=== PATIENT | male | born 2000 | race African-American/Black ===

== ENCOUNTER 2022-12-29 06:01 | Emergency (ER) | payer OTHER, SELFPAY ==
[2022-12-29 06:46] LABS: Absolute Lymphocytes (CBC) 1.5 K/uL (0.7-4.9); Hematocrit 45.2 % (39.6-49.0); Lymphocytes % 14.2 % (15.3-44.8); MCV 85.1 fL (80-100); MPV 8.6 fL (7.6-11.3); RBC Red Blood Cell Count 5.31 M/uL (4.33-5.43)
[2022-12-29 07:04] LABS: Albumin 3.9 g/dL (3.4-5.0); Bilirubin Total 0.7 mg/dL (0.2-1.0); Potassium 3.7 mEq/L (3.5-5.1); Protein, Total 7.6 g/dL (6.4-8.2)
--- NOTE | 2022-12-29 07:33 | RAD REPORT ---
EXAM DESCRIPTION: US - Scrotum Testicles - 12/29/2022 7:08 am CLINICAL HISTORY: left testicular nodule COMPARISON: No comparisons FINDINGS: The right testicle measures 4.9 x 2.3 x 3.2 cm with volume of 18.9 cc. No intratesticular masses or evidence of testicular torsion. The left testicle measures 4.1 x 2.7 x 3.5 cm with volume of 20.7 cc. No intratesticular masses or ev idence of testicular torsion. Enlarged hypervascular left epididymis. No pathologic fluid collections. Left-sided varicocele . IMPRESSION: Left-sided epididymitis. No abscess. Left varicocele. Bilateral testicular blood flow is present.
--- NOTE | 2022-12-29 07:43 | EDPHYS ---
Physician Documentation [facility] Name: Dakotah Mcdonald Age: 22 yrs Sex: Male : 2000 Arrival Date: 12/29/2022 Time: 06:01 Bed 16 Private MD: ED Physician Glenn Farrell HPI: 12/29 06:13 This 22 yrs old Black Male presents to ER via Unassigned with complaints of Groin Pain. sp4 07:28 Patient presents complaining of discomfort in the left testicle and associated palpable sp4 nodule of the left testicle. Nodule is not on the underside of the testicle. Patient noticed that 2 days ago.. Denied any other symptoms. Historical: - Allergies: 06:25 seafood; pf1 - PMHx: 06:25 Asthma; pf1 - PSHx: 06:25 None; pf1 - Immunization history:: Adult Immunizations up to date, Last tetanus immunization: < 5 years ago Flu vaccine is not up to date. - Social history:: Smoking status: Patient denies any tobacco usage or history of. Patient/guardian denies using alcohol, street drugs. - Family history:: not pertinent. ROS: 07:28 Constitutional: Negative for fever, chills, and weight loss, Eyes: Negative for injury, sp4 pain, redness, and discharge, ENT: Negative for injury, pain, and discharge, Neck: Negative for injury, pain, and swelling, Cardiovascular: Negative for chest pain, palpitations, and edema, Respiratory: Negative for shortness of breath, cough, wheezing, and pleuritic chest pain, Abdomen/GI: Negative for abdominal pain, nausea, vomiting, diarrhea, and constipation, Back: Negative for injury and pain, : Negative for injury, bleeding, discharge, and swelling, positive with testicle discomfort left testicular nodule MS/Extremity: Negative for injury and deformity, Skin: Negative for injury, rash, and discoloration, Neuro: Negative for headache, weakness, numbness, tingling, and seizure, Psych: Negative for depression, anxiety, Allergy/Immunology: Negative for hives, rash, and allergies Endocrine: Negative for neck swelling, polydipsia, polyuria, polyphagia, and weight changes Hematologic/Lymphatic: Negative for swollen nodes, abnormal bleeding, and unusual bruising Exam: 07:28 Constitutional: This is a well developed, well nourished patient who is awake, alert, sp4 and in no acute distress. Head/Face: Normocephalic, atraumatic. Eyes: Pupils equal round and reactive to light, extra-ocular motions intact. Lids and lashes normal. Conjunctiva and sclera are not injected. Cornea within normal limits. Periorbital areas with no swelling, redness, or edema. ENT: Nares patent. No nasal discharge, no septal abnormalities noted. Tympanic membranes are normal and external auditory canals are clear. Oropharynx with no redness, swelling, or masses, exudates, or evidence of obstruction, uvula midline. Mucous membranes moist. Neck: Trachea midline, no thyromegaly or masses palpated, and no cervical lymphadenopathy. Supple, full range of motion without nuchal rigidity, or vertebral point tenderness. No Meningismus. Chest/axilla: Normal chest wall appearance and motion. Nontender with no deformity. No lesions are appreciated. Cardiovascular: Regular rate and rhythm with a normal S1 and S2. No gallops, murmurs, or rubs. Normal PMI, no JVD. No pulse deficits. Respiratory: Lungs have equal breath sounds bilaterally, clear to auscultation and percussion. No rales, rhonchi or wheezes noted. No increased work of breathing, no retractions or nasal flaring. Abdomen/GI: Soft, non-tender, with normal bowel sounds. No distension or tympany. No guarding or rebound. No evidence of tenderness throughout. Back: No spinal tenderness. No costovertebral tenderness. Male : Normal genitalia with no discharge or lesions. There is small palpable left testicular nodule that is soft to touch inferior part of the left testicle. Otherwise no mass, no cellulitis, no abscess, no signs of orchitis or epididymitis. Skin: Warm, dry with normal turgor. Normal color with no rashes, no lesions, and no evidence of cellulitis. MS/ Extremity: Pulses equal, no cyanosis. Neurovascular intact. Full, normal range of motion. Neuro: Awake and alert, GCS 15, oriented to person, place, time, and situation. Cranial nerves II-XII grossly intact. Motor strength 5/5 in all extremities. Sensory grossly intact. Psych: Awake, alert, with orientation to person, place and time. Behavior, mood, and affect are within normal limits Vital Signs: 06:24 BP 149 / 88; Pulse 107; Resp 18; Temp 99.5; Pulse Ox 100% on R/A; Weight 78.02 kg; pf1 Height 5 ft. 11 in. ; Pain 6/10; 06:24 Body Mass Index 23.99 (78.02 kg, 180.34 cm) pf1 06:24 Pain Scale: Adult pf1 MDM: 06:18 Patient medically screened. sp4 07:28 Differential Diagnosis Testicular mass, testicular nodule, acute orchitis, epididymal sp4 cyst. Data reviewed: vital signs, nurses notes, radiologic studies, ultrasound. ED course: Labs unremarkable today.. . 07:41 ED course: Ultrasound revealed acute left epididymitis. Patient will be treated with sp4 doxycycline Flagyl for the next 10 days. We will also prescribe ibuprofen as needed for pain.. 12/29 06:18 Order name: CBC with Diff; Complete Time: 07:27 sp4 12/29 06:18 Order name: CMP; Complete Time: 07:27 sp4 12/29 06:18 Order name: Urinalysis w/ reflexes sp4 12/29 07:51 Order name: Urine Culture EDMS 12/29 06:18 Order name: US Scrotum Testicles; Complete Time: 07:35 sp4 12/29 06:18 Order name: IV Saline Lock; Complete Time: 06:47 sp4 12/29 06:18 Order name: Labs collected and sent; Complete Time: 06:47 sp4 Administered Medications: 08:01 Drug: AZITHromycin PO 500 mg Route: PO; kc6 08:05 Follow up: Response: No adverse reaction kc6 08:01 Drug: Doxycycline PO 100 mg Route: PO; kc6 08:05 Follow up: Response: No adverse reaction kc6 08:01 Drug: metroNIDAZOLE PO 500 mg Route: PO; kc6 08:05 Follow up: Response: No adverse reaction kc6 Disposition Summary: 12/29/22 07:42 Discharge Ordered Location: Home sp4 Problem: new sp4 Symptoms: have improved sp4 Condition: Stable sp4 Diagnosis - Acute left epididymitis sp4 Followup: sp4 - With: Pk Shetty MD - When: 7 - 10 days - Reason: Recheck today's complaints Discharge Instructions: - Discharge Summary Sheet sp4 - Epididymitis sp4 Forms: - Antibiotic Education sp4 Prescriptions: - Flagyl 500 mg Oral Tablet - take 1 tablet by ORAL route every 8 hours for 10 days; 30 tablet; Refills: 0, sp4 Product Selection Permitted - Ibuprofen 600 mg Oral Tablet - take 1 tablet by ORAL route every 6 hours As needed take with food; 30 tablet; sp4 Refills: 0, Product Selection Permitted - Doxycycline Monohydrate 100 mg Oral Tablet - take 1 tablet by ORAL route every 12 hours for 10 days; 20 tablet; Refills: 0, sp4 Product Selection Permitted Signatures: Dispatcher [employer] Bree Campbell RN RN kc6 Selina Courtney RN RN pf1 Glenn Farrell MD MD sp4
--- NOTE | 2022-12-29 07:43 | ER ---
Nurse's Notes [facility] Name: Dakotah Mcdonald Age: 22 yrs Sex: Male : 2000 Arrival Date: 12/29/2022 Time: 06:01 Bed 16 Private MD: Diagnosis: Acute left epididymitis Presentation: 12/29 06:24 Chief complaint: Patient states: left groin to left testicular pain 6,onset 2 days with pf1 a lump to left testicle. Coronavirus screen: Vaccine status: Patient reports being unvaccinated. Client denies travel out of the [place] in the last 14 days. At this time, the client does not indicate any symptoms associated with coronavirus-19. Ebola Screen: Patient negative for fever greater than or equal to 101.5 degrees Fahrenheit, and additional compatible Ebola Virus Disease symptoms. Initial Sepsis Screen: Does the patient meet any 2 criteria? HR > 90 bpm. No. Patient's initial sepsis screen is negative. Does the patient have a suspected source of infection? No. Patient's initial sepsis screen is negative. Risk Assessment: Do you want to hurt yourself or someone else? Patient reports no desire to harm self or others. 06:24 Method Of Arrival: Ambulatory pf1 06:24 Acuity: JAY 3 pf1 Historical: - Allergies: 06:25 seafood; pf1 - PMHx: 06:25 Asthma; pf1 - PSHx: 06:25 None; pf1 - Immunization history:: Adult Immunizations up to date, Last tetanus immunization: < 5 years ago Flu vaccine is not up to date. - Social history:: Smoking status: Patient denies any tobacco usage or history of. Patient/guardian denies using alcohol, street drugs. - Family history:: not pertinent. Screenin:48 [facility] ED Fall Risk Assessment (Adult) History of falling in the last 3 months, jb4 including since admission No falls in past 3 months (0 pts) Confusion or Disorientation No (0 pts) Score/Fall Risk Level 0 - 2 = Low Risk Oriented to surroundings, Maintained a safe environment. Abuse screen: Denies threats or abuse. Nutritional screening: No deficits noted. Tuberculosis screening: No symptoms or risk factors identified. Assessment: 06:30 General: Appears in no apparent distress. uncomfortable, Behavior is calm, cooperative, jb4 appropriate for age. Pain: Complains of pain in left testicle Pain does not radiate. Pain currently is 6 out of 10 on a pain scale. Neuro: Level of Consciousness is awake, alert, obeys commands, Oriented to person, place, time, situation. Cardiovascular: Patient's skin is warm and dry. Respiratory: Airway is patent Respiratory effort is even, unlabored, Respiratory pattern is regular, symmetrical. GI: No signs and/or symptoms were reported involving the gastrointestinal system. : No signs and/or symptoms were reported regarding the genitourinary system. EENT: No signs and/or symptoms were reported regarding the EENT system. Derm: Skin is intact, Skin is pink, warm \T\ dry. Musculoskeletal: Circulation, motion, and sensation intact. Range of motion: intact in all extremities. 07:00 Reassessment: Patient appears in no apparent distress at this time. Patient and/or kc6 family updated on plan of care and expected duration. Pain level reassessed. Patient is alert, oriented x 3, equal unlabored respirations, skin warm/dry/pink. Vital Signs: 06:24 BP 149 / 88; Pulse 107; Resp 18; Temp 99.5; Pulse Ox 100% on R/A; Weight 78.02 kg; pf1 Height 5 ft. 11 in. ; Pain 6/10; 06:24 Body Mass Index 23.99 (78.02 kg, 180.34 cm) pf1 06:24 Pain Scale: Adult pf1 ED Course: 06:03 Patient arrived in ED. jj6 06:12 Glenn Farrell MD is Attending Physician. sp4 06:25 Triage completed. pf1 06:30 Initial lab(s) drawn, by hi, sent to lab. Inserted saline lock: 18 gauge in left jb4 antecubital area, using aseptic technique. Blood collected. 06:48 Patient has correct armband on for positive identification. Bed in low position. Call jb4 light in reach. Side rails up X 1. Client placed on continuous cardiac and pulse oximetry monitoring. NIBP monitoring applied. 07:10 Scrotum Testicles In Process Unspecified. EDMS 07:15 Report received from KERLINE Peoples. kc6 07:39 Urinalysis w/ reflexes Sent. bc6 07:42 Pk Shetty MD is Referral Physician. sp4 08:01 No provider procedures requiring assistance completed. IV discontinued, intact, kc6 bleeding controlled, No redness/swelling at site. Pressure dressing applied. Administered Medications: 08:01 Drug: AZITHromycin PO 500 mg Route: PO; kc6 08:05 Follow up: Response: No adverse reaction kc6 08:01 Drug: Doxycycline PO 100 mg Route: PO; kc6 08:05 Follow up: Response: No adverse reaction kc6 08:01 Drug: metroNIDAZOLE PO 500 mg Route: PO; kc6 08:05 Follow up: Response: No adverse reaction kc6 Medication: 08:02 VIS not applicable for this client. kc6 Outcome: 07:42 Discharge ordered by . sp4 08:01 Discharged to home ambulatory. kc6 08:01 Condition: stable 08:01 Discharge instructions given to patient, Instructed on discharge instructions, follow up and referral plans. medication usage, Demonstrated understanding of instructions, follow-up care, medications, Prescriptions given X 3. 08:11 Patient left the ED. kc6 Signatures: Dispatcher [employer] EDMS Dayo Castillo RN RN jb4 Florence Fallon6 Bree Mccormick RN RN kc6 Selina Courtney RN RN pf1 Aleja Mcdermott6 Glenn Farrell MD MD sp4
[2022-12-29 07:47] LABS: Urine Bacteria <20 /HPF (<20); Urine Bilirubin NEGATIVE (Negative); Urine Blood Negative (Negative); Urine Clarity Clear (Clear); Urine Color Colorless (Yellow); Urine Glucose NEGATIVE (Negative); Urine Protein NEGATIVE (Negative); Urine RBC <5 /HPF (None Seen); Urine Urobilinogen Normal (Normal); Urine pH 6.5 (5.0-7.0)
[2022-12-29] MEDS ORDERED: metroNIDAZOLE 500 MG TABLET ONE (08:03)
[2022-12-29] MEDS ORDERED: AZITHROMYCIN 250 MG TAB ONE (08:04)
[2022-12-29] MEDS ORDERED: DOXYCYCLINE 100 MG CAP PO ONE (08:04)
[2022-12-29 08:26] VITALS: BP 149/88; TEMP 99.5; O2SAT 100
== END 2022-12-29 08:11 | disposition home or self-care (01) ==
LOC: ER 06:01
DX: N45.1 Epididymitis (principal); Z91.013 Allergy to seafood
CPT/HCPCS: 36415; 76870; 80053; 81001; 85025; 87086; 87088; 99284